=== PATIENT | male | born 1995 | race Two or more races ===

== ENCOUNTER 2017-03-17 08:22 | Emergency (ER) | payer OTHER ==
[2017-03-17 08:28] VITALS: BP 138/78; BMI 33.4
--- NOTE | 2017-03-17 08:55 | DR.GENAD ---
HPI - PCP Primary Care Physician: NFRohit - HPI Comment HPI Comment: NO FEVER. GETTING WORSE. - Complaint/Symptoms Chief Complaint Doctors Comments: ABDOMINAL PAIN WITH N/V/D TIMES 3 DAYS. TODAY , BLOODY DIARRHEA. Chief Complaint:: PT C/O SEVERE ABD PAIN WITH N/V/D. PT STATES HE IS HAVING BLOOD IN HIS STOOL. PT STATES THIS HAS BEEN GOING ON SINCE TUESDAY AM. PT ALSO STATES HE WENT TO [facility] YESTERDAY AND WAS NOT GIVEN ANYTHING. HE WAS TESTED FOR THE FLU NEGATIVE - Nurses notes reviewed Nurses Notes Review: Yes - Source History Provided: Patient - Mode of Arrival Mode of Arrival: Ambulatory - Timing Onset of Chief Complaint: 03/14/17 Came on: Suddenly - Duration Duration: Constant Duration: Days - Severity Severity: Moderate PMH - PMH Past Medical History: No Past Surgical History: Yes Surgical History: Abdominal Surgery Past Surgical History Comment: HERNIA REPAIR - Family History History of Family Medical Conditions: No - Social History Does any household member use tobacco: No Alcohol Use: Rarely Do you use any recreational Drugs:: No Lives With: Family Lives Where: Home - infectious screening In the last 2 months have you had wt loss of >10#?: NO Have you had fever, night sweats or hemotysis?: No Have you traveled outside the country in the last 6 months?: No Isolation: Standard ROS - Review of Systems Constitutional: No Symptoms Reported Eyes: No Symptoms Reported ENTM: No Symptoms Reported Respiratoy: No Symptoms Reported Cardiovascular: No Symptoms Reported Gastrointestinal/Abdominal: Abdominal Pain, Diarrhea, Nausea, Vomiting Genitourinary: No Symptoms Reported Neurological: No Symptoms Reported Musculoskeletal: No Symptoms Reported Integumentary: No Symptoms Reported Hematologic/Lymphatic: No Symptoms Reported Endocrine: No Symptoms Reported All Other Systems: Reviewed and Negative PE - Vital Signs Vitals: Temperature 97.6 F Pulse Rate 114 Respiratory Rate 20 Blood Pressure 138/78 O2 Sat by Pulse Oximetry 96 - General Limitations: No Limitations General Appearance: In No Apparent Distress - Head Head Exam: Normal Inspection - Eyes Eye exam: Normal Appearance - ENT ENT Exam: Normal External Ear Exam External Ear Exam: Normal External Inspection TM/Canal Exam: Bilateral Normal Nose Exam: Normal Nose Exam Mouth Exam: Normal Inspection Throat Exam: Normal Inspection - Neck Neck Exam: Normal Inspection - Chest Chest Inspection: Symmetric Chest Wall Rise - Respiratory Respiratory Exam: Normal Lung Sounds Bilat Respiratory Exam: Bilateral Clear to Auscultation - Cardiovascular Cardiovascular Exam: Regular Rate, Normal Rhythm, Normal Heart Sounds - Abdominal Exam Abdominal Exam: Normal Bowel Sounds, Soft, Tenderness Abdominal Tenderness: Diffuse, Moderate - Extremities Extremities Exam: Normal Inspection - Back Back Exam: Normal Inspection - Neurologic Neurological Exam: Alert, Oriented X3 - Psychiatric Psychiatric Exam: Normal Affect - Skin Skin Exam: Normal Color MDM - Additional Information Additional Information Obtained From: Family - Differential Diagnosis Differential Diagnosis: ABDOMINAL PAIN, BOWEL OBSTRUCTION, DIVERTICULITIS, GASTROENTERITIS Course - Treatment Treatment: SEE ORDERS. - Education/Counseling Education/Counseling: Patient, Family, Education Educated On: Treatment, Diagnosis, Needs for Follow Up ROR - Labs Reviewed Laboratory Results Reviewed?: Yes Result Diagrams: 03/17/17 09:09 03/17/17 09:09 Laboratory: 03/17/17 13:59 Stool - Final WBC 8.2 X10^3/uL (3.6-10.0) 03/17/17 09:09 RBC 5.83 X10^6/uL (4.7-6.0) 03/17/17 09:09 Hgb 17.2 g/dL (13.5-18.0) 03/17/17 09:09 Hct 49.7 % (42.0-54.0) 03/17/17 09:09 MCV 85.2 fL (80.0-100.0) 03/17/17 09:09 MCH 29.5 pg (27.0-34.0) 03/17/17 09:09 MCHC 34.6 g/dL (33.0-35.0) 03/17/17 09:09 RDW 13.1 % (11.6-16.5) 03/17/17 09:09 Plt Count 178 X10^3/uL (150.0-450.0) 03/17/17 09:09 MPV 8.8 fL (7.4-11.0) 03/17/17 09:09 Neut % 70.8 % (42.0-75.0) 03/17/17 09:09 Lymph % 12.6 % (21.0-51.0) L 03/17/17 09:09 [place] % 15.4 % (0.0-13.0) H 03/17/17 09:09 Eos % 0.9 % (0.9-2.9) 03/17/17 09:09 Baso % 0.3 % (0.2-1.0) 03/17/17 09:09 Neut # 5.8 x10^3/uL (2.2-4.8) H 03/17/17 09:09 Lymph # 1.0 X10^3/uL (1.3-2.9) L 03/17/17 09:09 [place] # 1.3 x10^3/uL (0.3-0.8) H 03/17/17 09:09 Eos # 0.1 x10^3/uL (0.0-0.2) 03/17/17 09:09 Baso # 0.0 X10^3/uL (0.0-0.1) 03/17/17 09:09 Absolute Nucleated RBC 0.1 /100WBC 03/17/17 09:09 Sodium 136 mmol/L (136-145) 03/17/17 09:09 Corrected Sodium 136 mmol/L (136-145) 03/17/17 09:09 Potassium 4.0 mmol/L (3.5-5.1) 03/17/17 09:09 Chloride 100 mmol/L (98-107) 03/17/17 09:09 Carbon Dioxide 30.2 mmol/L (21-32) 03/17/17 09:09 BUN 11 mg/dL (7-18) 03/17/17 09:09 Creatinine 1.19 mg/dL (0.70-1.30) 03/17/17 09:09 Est GFR (MDRD) Af Amer > 60 (>60) 03/17/17 09:09 Est GFR (MDRD) Non-Af > 60 (>60) 03/17/17 09:09 Glucose 116 mg/dL (65-99) H 03/17/17 09:09 Calcium 8.7 mg/dL (8.5-10.1) 03/17/17 09:09 Corrected Calcium 9.3 mg/dL (8.5-10.1) 03/17/17 09:09 Total Bilirubin 0.70 mg/dL (0.2-1.0) 03/17/17 09:09 AST 13 Units/L (15-37) L 03/17/17 09:09 ALT 25 Units/L (12-78) 03/17/17 09:09 Alkaline Phosphatase 65 Units/L (46-116) 03/17/17 09:09 Total Protein 7.3 g/dL (6.4-8.2) 03/17/17 09:09 Albumin 3.3 g/dL (3.4-5.0) L 03/17/17 09:09 Globulin 4.0 g/dL (2.5-4.5) 03/17/17 09:09 Albumin/Globulin Ratio 0.8 Ratio (1.1-2.1) L 03/17/17 09:09 Amylase 65 Units/L (25-115) 03/17/17 09:09 Lipase 167 Units/L (73-393) 03/17/17 09:09 Specimen Type Clean catch urine 03/17/17 09:29 Urine Color Yellow (YELLOW) 03/17/17 09:29 Urine Appearance Clear (CLEAR) 03/17/17 09:29 Urine pH 5.0 (5.0 - 8.0) 03/17/17 09:29 Ur Specific [place] 1.020 (1.000-1.030) 03/17/17 09:29 Urine Protein 1+ (NEGATIVE) 03/17/17 09:29 Urine Glucose (UA) Negative (NEGATIVE) 03/17/17 09:29 Urine Ketones Negative (NEGATIVE) 03/17/17 09:29 Urine Occult Blood Negative (NEGATIVE) 03/17/17 09:29 Urine Nitrite Negative (NEGATIVE) 03/17/17 09:29 Urine Bilirubin Negative (NEGATIVE) 03/17/17 09:29 Urine Urobilinogen Normal (NORMAL) 03/17/17 09:29 Ur Leukocyte Esterase Negative (NEGATIVE) 03/17/17 09:29 Urine RBC Rare /HPF (NEGATIVE) 03/17/17 09:29 Urine WBC Rare /HPF (NEGATIVE) 03/17/17 09:29 Ur Squamous Epith Cells Rare /HPF (NEGATIVE) 03/17/17 09:29 Amorphous Sediment 1+ /HPF (NEGATIVE) 03/17/17 09:29 Urine Bacteria Trace /HPF (NEGATIVE) 03/17/17 09:29 Urine Mucus Few /HPF (NEGATIVE) 03/17/17 09:29 Ur Culture Indicated? No/not indicated 03/17/17 09:29 Stool Description 75 grs bloody loose 03/17/17 13:59 Stool for White Cells Positive (NEGATIVE) A 03/17/17 13:49 Stl C. diff Tox B Gene Negative (NEGATIVE) 03/17/17 13:59 Stl C. diff [id number] Negative (NEGATIVE) 03/17/17 13:59 Cryptosporid parvum Ag Negative (NEGATIVE) 03/17/17 13:59 E. histolytica Antigen Negative (NEGATIVE) 03/17/17 13:59 Giardia lamblia Ag Negative (NEGATIVE) 03/17/17 13:59 - XRAY XRAY Interpreted by: Radiologist XRAY Findings: REPORT DISCUSS WITH PATIENT. - Diagnosis Discharge Problem: Abdominal pain Qualifiers: Abdominal location: generalized Qualified Code(s): R10.84 - Generalized abdominal pain Terminal ileitis of small intestine Qualifiers: Digestive disease complication type: unspecified complication Qualified Code(s) : K50.019 - Crohn's disease of small intestine with unspecified complications - Discharge Plan Disposition: 01 HOME, SELF-CARE Condition: Stable Prescriptions: Acetaminophen with Codeine [Tylenol/Codeine #3 300-30 mg] 1 tab PO Q4-6H PRN # 15 tab PRN Reason: Pain Ciprofloxacin HCl [CIPRO 500 MG TAB *] 500 mg PO Q12H #20 tab Metronidazole [Flagyl Tab 500 mg] 500 mg PO TID #21 tab Ondansetron [Zofran ODT 8 mg] 8 mg PO Q8H PRN #12 tab PRN Reason: Nausea/Vomiting - Follow ups/Referrals Follow ups/Referrals: [facility],None [Primary Care Provider] - 3 days - Instructions Instructions: Abdominal Pain, Adult, [id number], Chronic Diarrhea, Bloody Diarrhea Additional Instructions: RETURN TO ED IF WORSE.
[2017-03-17 09:19] LABS: BASOPHILS % (AUTO) 0.3 % (0.2-1.0); EOSINOPHILS # (AUTO) 0.1 x10^3/uL (0.0-0.2); EOSINOPHILS % (AUTO) 0.9 % (0.9-2.9); HEMATOCRIT 49.7 % (42.0-54.0); HEMOGLOBIN 17.2 g/dL (13.5-18.0); LYMPHOCYTES % (AUTO) 12.6 % (21.0-51.0); MEAN CORPUSCULAR HEMOGLOBIN 29.5 pg (27.0-34.0); MEAN CORPUSCULAR HGB CONC 34.6 g/dL (33.0-35.0); MEAN CORPUSCULAR VOLUME 85.2 fL (80.0-100.0); MEAN PLATELET VOLUME 8.8 fL (7.4-11.0); MONOCYTES # (AUTO) 1.3 x10^3/uL (0.3-0.8); MONOCYTES % (AUTO) 15.4 % (0.0-13.0); NEUTROPHILS # (AUTO) 5.8 x10^3/uL (2.2-4.8); NEUTROPHILS % (AUTO) 70.8 % (42.0-75.0); PLATELET COUNT 178 X10^3/uL (150.0-450.0); RED BLOOD COUNT 5.83 X10^6/uL (4.7-6.0); RED CELL DISTRIBUTION WIDTH 13.1 % (11.6-16.5); WHITE BLOOD COUNT 8.2 X10^3/uL (3.6-10.0)
[2017-03-17 09:31] LABS: BILIRUBIN,URINE NEGATIVE (NEGATIVE); BLOOD/HEMOGLOBIN,URINE NEGATIVE (NEGATIVE); GLUCOSE, URINE NEGATIVE (NEGATIVE); KETONES,URINE NEGATIVE (NEGATIVE); LEUKOCYTE ESTERASE ,URINE NEGATIVE (NEGATIVE); NITRITES,URINE NEGATIVE (NEGATIVE); PROTEIN,URINE 1+ (NEGATIVE); UROBILINOGEN,URINE NORMAL (NORMAL)
[2017-03-17 09:34] LABS: ALANINE AMINOTRANSFERASE 25 Units/L (12-78); ALBUMIN 3.3 g/dL (3.4-5.0); ALKALINE PHOSPHATASE 65 Units/L (46-116); AMYLASE 65 Units/L (25-115); ASPARTATE AMINO TRANSFERASE 13 Units/L (15-37); BLOOD UREA NITROGEN 11 mg/dL (7-18); CALCIUM 8.7 mg/dL (8.5-10.1); CARBON DIOXIDE 30.2 mmol/L (21-32); CHLORIDE 100 mmol/L (98-107); COR CA(FOR HYPOALB) 9.3 mg/dL (8.5-10.1); COR NA(FOR HYPERGLY) 136 mmol/L (136-145); CREATININE 1.19 mg/dL (0.70-1.30); LIPASE 167 Units/L (73-393); SODIUM 136 mmol/L (136-145); TOTAL PROTEIN 7.3 g/dL (6.4-8.2); eGFR BLACK RACES > 60 (>60); eGFR NON BLACK RACES > 60 (>60)
[2017-03-17 09:40] LABS: AMORPHOUS SEDIMENT,UR 1+ /HPF (NEGATIVE); APPEARANCE,URINE CLEAR (CLEAR); BACTERIA,URINE TRACE /HPF (NEGATIVE); COLOR,URINE YELLOW (YELLOW); MUCUS,URINE FEW /HPF (NEGATIVE); RBC,URINE RARE /HPF (NEGATIVE); SQUAMOUS EPITHELIAL CELL,UR RARE /HPF (NEGATIVE)
--- NOTE | 2017-03-17 09:40 | RAD ---
Examination: Abdomen with PA chest History: Abdominal pain and diarrhea PA chest: Normal heart size with clear lungs and pleural spaces. Abdomen: Supine and upright views demonstrate mild dilatation of small and large bowel. There is sugg estion of a rounded mass effect in the mid abdomen. No pathologic calcification or ascites is noted. Impression: 1. Normal PA chest. 2. Mild nonobstructive intestinal distention. 3. Apparent mid abdominal mass effect may be artifact and related to fluid-filled bowel or other norm al structures. However, correlate clinically for abdominal mass with follow-up if appropriate. Reported By:
[2017-03-17] MEDS ORDERED: ZOFRAN INJ 4 MG VIAL IVP ONE (10:18)
[2017-03-17] MEDS ORDERED: ZOFRAN INJ 4 MG VIAL ONE (10:19)
[2017-03-17] MEDS ORDERED: DEMEROL INJ ONE (10:21)
[2017-03-17] MEDS ORDERED: DEMEROL INJ IVP ONE (10:25)
--- NOTE | 2017-03-17 13:26 | CT ---
HISTORY: Mid abdominal pain, nausea, vomiting Study: CT abdomen pelvis with contrast Comparison: Plain films same date Technique: Axial post-contrast images with coronal and sagittal reformats. Dose reduction procedures were used with mA/kv adjusted for body size. Findings: The lung bases are clear. The liver, spleen, adrenal glands, and pancreas are within normal limits. N o opaque stones are visible within the gallbladder. The kidneys are unobstructed and without stones o r masses. The appendix is normal. Retroperitoneal lymphadenopathy is identified. There is some mildly enlarged mesenteric lymphadenopathy most prominent in the cecal mesentery. There is a moderately yulia g segment of distal and terminal ileum which demonstrates marked transmural thickening and perienteri c fat stranding suggestive of inflammation. This could be on the basis of inflammatory bowel disease such as Crohn's disease or an infectious enteritis. The mesenteric adenopathy described above is like ly reactive to this process. The remainder of the small bowel and colon appear uninvolved. Examinatio n of the pelvis demonstrated no evidence for pelvic masses or pelvic lymphadenopathy. There is a smal l amount of fluid in the pelvis likely related to the inflammatory process. No lytic or blastic skele nury lesions are identified. IMPRESSION: Significantly abnormal segment of distal and terminal ileum demonstrating marked transmural thickenin g, perienteric inflammation, and associated mesenteric adenopathy suggestive either of active Crohn's disease or perhaps an infectious ileitis. Reported By:
[2017-03-17 14:47] LABS: STOOL FOR WBC POSITIVE (NEGATIVE)
[2017-03-17 15:13] LABS: CRYPTOSPORIDIUM PARVUM ANTIGEN NEGATIVE (NEGATIVE); GIARDIA LAMBLIA ANTIGEN NEGATIVE (NEGATIVE)
== END 2017-03-17 14:00 | disposition home or self-care (01) ==
LOC: ER 08:36
DX: K50.019 Crohn's disease of small intestine with unspecified complications (principal); R10.84 Generalized abdominal pain; R14.0 Abdominal distension (gaseous)
CPT/HCPCS: 36415; 74022; 74177; 80053; 81001; 82150; 83630; 83690; 85025; 87045; 87328; 87329; 87336; 87427; 87493; 87899; 96365; 96374; 96375; 99283; 99284; A4222; J2175; J2405